=== PATIENT | male | born 1965 | race Caucasian/White ===

== ENCOUNTER 2024-05-31 09:03 | Emergency (ER) | payer SELFPAY ==
[2024-05-31 09:11] VITALS: BP 111/71; PULSE 83; RESP 18; TEMP 36.7; O2SAT 96; BMI 24.3
--- NOTE | 2024-05-31 09:13 | XR_ITS ---
WS: [id number] Portable AP upright chest, 05/31/2024 Clinical Data: congestion Comparison: None. Findings: There is a pleural-based patchy opacity in the midportion of the right lung which may be in the right middle lobe. This opacity could represent pneumonia, atelectasis or a mass. There is a pat rosy opacity inferior to the right hilum which could also represent pneumonia, atelectasis or a lung m ass. There is a small right effusion. There is a oval 2.2 cm nodule in the midportion of the left eulalia g which could represent a primary cancer or a metastatic lesion. The heart is normal. The diaphragms are flattened. The pulmonary vascularity is not increased. No pneumothorax is seen. XR/XR chest 1V portable [id number] Impression: 1. Pleural-based patchy opacity in the midportion of the right lung, possibly r ight middle lobe which could represent pneumonia, atelectasis or primary lung t umor. 2. Patchy opacity inferior to right hilum which could also represent pneumonia, atelectasis or a lung mass. 3. Oval 2.2 cm nodule in midportion of left lung which could represent a primar y tumor or metastatic lesion. 4. Small right pleural effusion. 5. Atherosclerosis and hyperinflation.
--- NOTE | 2024-05-31 09:24 | ED_ITS ---
Documented by User: VENITA James 05/31/24 12:54 HPI - URI/Sore Throat 2 General: Chief Complaint: Upper Respiratory Infection Stated Complaint: SOB Time Seen by Provider: 05/31/24 09:08 Source: patient Mode of arrival: wheelchair Limitations: no limitations History of Present Illness: Patient is a 59-year-old male who presents to ED today for evaluation of what he believes is an upper respiratory infection. Patient states he is originally from the [place] but several years ago by some land in [place], [place] and has been spending the lennon here trying to attend to it. He states he was around his grandchildren a few weeks ago and remembers they were coughing and had some congestion. He thinks maybe he caught what they had . Essentially he tells me that he feels like he is drowning in mucus . After speaking to patient further he tells me that he has had quite a bit of weight loss over the past 6 weeks. He attributes this to increased stress as he states his is actively passing away of breast cancer. He is reporting decreased energy as well as night sweats and intermittent fevers over the past several weeks. Patient does have a 40+ year smoking history although did quit 6 weeks ago. Patient states at rest he does not overly feel short of breath. He is not having any chest pain. Vitals are stable upon arrival. He reportedly has not seen a doctor in 16 years . MD elicited complaint: fever and other (chest congestion/cough) Onset (ago): week(s) Consistency: constant Severity: moderate Description of mucous: clear Able to tolerate fluids by mouth: Yes Exacerbating factors: nothing Relieving factors: nothing Context: sick contacts (grandchildren) Associated symptoms: Reports cough, fever(s) and other (night sweats, weight loss, decreased energy ); Deny abdominal pain, chest pain, diarrhea, headache(s), nasal congestion, nausea, sinus pain or vomiting Treatments prior to arrival: none Review of Systems 2 Const: Reports: fever(s), change in weight and night sweats ENMT: Denies: throat pain, odynophagia, nasal discharge, nasal congestion or sinus pain Card: Reports: dyspnea on exertion; Denies: chest pain, palpitations, irregular heart rhythm, edema, swelling of feet/ankles, lightheadedness, syncope, pre-syncope, orthopnea, leg pain with exertion or acrocyanosis Resp: Reports: productive cough and chest congestion; Denies: dyspnea, wheezing, stridor, pain on inspiration or hemoptysis GI: Denies: abdominal pain, nausea, vomiting or diarrhea Musc: Denies: neck pain, back pain, extremity pain or joint pain Skin/Breast: Denies: rash Neuro: Denies: headache(s), numbness in extremities, weakness in extremities, sensory changes or dizziness Physical Exam 2 Const: COMMON NORMALS: no acute distress, patient oriented x3, no limitations and alert GENERAL APPEARANCE: cooperative ORIENTATION/CONSCIOUSNESS: Yes awake, Yes oriented to person, Yes oriented to place and Yes oriented to time Neck/C-Spine: COMMON NORMALS: no lymphadenopathy GENERAL: Yes normal visual inspection Chest: COMMONS NORMALS: normal inspection of the chest and normal palpation of entire chest wall Resp: COMMON NORMALS: normal respiratory effort and clear to auscultation bilaterally AUSCULTATION: clear to auscultation bilaterally Cardio: COMMON NORMALS: regular rate and regular rhythm RATE: regular rate RHYTHM: regular rhythm Extremity: COMMON NORMALS: no clubbing, cyanosis or edema, no calf tenderness and no pedal edema GENERAL: Yes normal exam except as noted Neuro: IRENA COMA SCALE: document GCS findings Irena coma scale eye opening: Spontaneous Irena coma scale verbal response: Orientated Irena coma scale motor response: Obey commands Irena coma scale total score: 15 COMMON NORMALS: patient oriented x3 SENSORIUM/ORIENTATION: Yes alert, Yes oriented to person, Yes oriented to place and Yes oriented to time Course 2 Vital Signs: Vital signs: Vital Signs Temperature 98.1 F 05/31/24 09:11 Pulse Rate 81 05/31/24 13:13 Respiratory Rate 18 05/31/24 09:11 Blood Pressure 116/77 05/31/24 13:13 Pulse Oximetry 96 05/31/24 13:13 Oxygen Delivery Me thod Room Air 05/31/24 10:06 MDM - URI/Sore Throat Medical Decision Making Patient's history unfortunately was very suspicious for lung cancer and I immediately informed him that this would be a large concern. Initial CXR obtained which was abnormal thus blood work and CT chest imaging initiated. Unfortunately on his chest CT he has several necrotic pulmonary masses most likely consistent with malignancy. His vital signs are stable. He does not require hospitalization. CT findings discussed with Dr. Encinas. We will refer patient to pulmonology for biopsy. He will then require follow-up with oncology. Will cover with antibiotics. Medical Records I reviewed the patient's medical records. Lab Data I reviewed the patient's lab results. 05/31/24 10:47 05/31/24 10:47 Radiology Impressions Chest X-Ray 05/31/24 09:13 Impression: 1. Pleural-based patchy opacity in the midportion of the right lung, possibly right middle lobe which could represent pneumonia, atelectasis or primary lung tumor. 2. Patchy opacity inferior to right hilum which could also represent pneumonia, atelectasis or a lung mass. 3. Oval 2.2 cm nodule in midportion of left lung which could represent a primary tumor or metastatic lesion. 4. Small right pleural effusion. 5. Atherosclerosis and hyperinflation. Chest CT 05/31/24 09:32 IMPRESSION: 1. Multifocal bilateral pulmonary masses as described above. Several of the masses appear partially necrotic and possibly superinfected. Biopsy/tissue sampling is recommended as well as PET-CT. 2. Small partially loculated right pleural effusion. 3. Subcarinal lymphadenopathy. 4. Calcified coronary artery disease. Laboratory Results WBC 12.67 10^3/uL (3.29-11.43) H 05/31/24 10:47 RBC 3.61 10^6/uL (3.85-5.65) L 05/31/24 10:47 Hgb 10.00 g/dL (11.27-16.99) L 05/31/24 10:47 Hct 32.0 % (37-53) L 05/31/24 10:47 MCV 88.6 fl (82-101) 05/31/24 10:47 MCH 27.7 pg (27-33) 05/31/24 10:47 MCHC 31.3 g/dL (30-55) 05/31/24 10:47 RDW 12.7 % (12.1-15.1) 05/31/24 10:47 Plt Count 319 10^3/cmm (157-399) 05/31/24 10:47 MPV 9.6 fL (7.4-10.4) 05/31/24 10:47 Neut % (Auto) 85.6 % 05/31/24 10:47 Lymph % (Auto) 6.3 % 05/31/24 10:47 Whitfield % (Auto) 6.3 % 05/31/24 10:47 Eos % (Auto) 0.0 % 05/31/24 10:47 Baso % (Auto) 0.3 % 05/31/24 10:47 Neut # (Auto) 10.84 10^3/uL (1.8-7.7) H 05/31/24 10:47 Lymph # (Auto) 0.8 10^3/uL (0.8-4.8) 05/31/24 10:47 Whitfield # (Auto) 0.8 10^3/uL (0.2-0.9) 05/31/24 10:47 Eos # (Auto) 0.0 10^3/uL (0.0-0.8) 05/31/24 10:47 Baso # (Auto) 0.0 10^3/uL (0.0-0.1) 05/31/24 10:47 Nucleated RBC % (auto) 0 % 05/31/24 10:47 Nucleated RBCs # 0.0 /100WBC 05/31/24 10:47 Sodium 131 mmol/L (136-145) L 05/31/24 10:47 Potassium 3.7 mmol/L (3.5-5.1) 05/31/24 10:47 Chloride 93 mmol/L (98-107) L 05/31/24 10:47 Carbon Dioxide 26 mmol/L (22-29) 05/31/24 10:47 Anion Gap 15.7 (5-19) 05/31/24 10:47 BUN 7 mg/dL (8-23) L 05/31/24 10:47 Creatinine 0.6 mg/dL (0.7-1.2) L 05/31/24 10:47 GFR Calculation 137.0 mL/min (90-130) H 05/31/24 10:47 Glucose 101 mg/dL (65-115) 05/31/24 10:47 Calculated Osmolality 270 mOsm/kg (285-295) L 05/31/24 10:47 Calcium 8.4 mg/dL (8.5-10.5) L 05/31/24 10:47 Total Bilirubin 0.5 mg/dL (0.15-1.2) 05/31/24 10:47 AST 24 U/L (0-40) 05/31/24 10:47 ALT 23 U/L (0-41) 05/31/24 10:47 Alkaline Phosphatase 139 U/L (40-130) H 05/31/24 10:47 Total Protein 6.7 g/dL (6.6-8.7) 05/31/24 10:47 Albumin 2.8 g/dL (3.5-5.2) L 05/31/24 10:47 Globulin 3.9 g/dL (1.3-4.6) 05/31/24 10:47 All radiology interpretation(s) finalized by discharge Discharge Plan Discharge Patient Disposition: Home Clinical Impression: Lung malignancy Qualifiers: Laterality: unspecified laterality Lung location: overlapping sites Qualified Code(s): C34.80 - Malignant neoplasm of overlapping sites of unspecified bronchus and lung Condition: Stable Prescriptions: New levofloxacin 500 mg tablet 500 mg PO DAILY 7 Days Qty: 7 0RF Discharge Orders: Discharge ED (Routine); Ordered 05/31/24 Ordered By: Xenia Fischer Activity Restrictions/Additional Instructions: As we discussed you are chest CT scan today unfortunately showed multiple pulmonary masses/lesions that were concerning for lung cancer/malignancy. Case management should be reaching out to you to set you up with a follow-up appointment with pulmonology for biopsy. You will then require follow-up with oncology. You need to return to the emergency department for severe chest pain, shortness of breath, difficulty breathing, uncontrollable fevers, or any other concerns you may have. Coding Level of Care Code ED Animation Artist for Chg Fwd Documented by User: Joe Encinas DO 05/31/24 15:46 HPI - URI/Sore Throat 2 General: Chief Complaint: Upper Respiratory Infection Stated Complaint: SOB Time Seen by Provider: 05/31/24 09:08 Physical Exam 2 Neuro: IRENA COMA SCALE: document GCS findings Irena coma scale total score: 15 Course 2 Vital Signs: Vital signs: Vital Signs Temperature 98.1 F 05/31/24 09:11 Pulse Rate 81 05/31/24 13:13 Respiratory Rate 18 05/31/24 09:11 Blood Pressure 116/77 05/31/24 13:13 Pulse Oximetry 96 05/31/24 13:13 Oxygen Delivery Me thod Room Air 05/31/24 10:06 MDM - URI/Sore Throat Medical Decision Making Patient's history unfortunately was very suspicious for lung cancer and I immediately informed him that this would be a large concern. Initial CXR obtained which was abnormal thus blood work and CT chest imaging initiated. Unfortunately on his chest CT he has several necrotic pulmonary masses most likely consistent with malignancy. His vital signs are stable. He does not require hospitalization. CT findings discussed with Dr. Encinas. We will refer patient to pulmonology for biopsy. He will then require follow-up with oncology. Will cover with antibiotics. Chart reviewed and patient discussed with midlevel. Agree with assessment and plan. Lab Data 05/31/24 10:47 05/31/24 10:47 Radiology Impressions Chest X-Ray 05/31/24 09:13 Impression: 1. Pleural-based patchy opacity in the midportion of the right lung, possibly right middle lobe which could represent pneumonia, atelectasis or primary lung tumor. 2. Patchy opacity inferior to right hilum which could also represent pneumonia, atelectasis or a lung mass. 3. Oval 2.2 cm nodule in midportion of left lung which could represent a primary tumor or metastatic lesion. 4. Small right pleural effusion. 5. Atherosclerosis and hyperinflation. Chest CT 05/31/24 09:32 IMPRESSION: 1. Multifocal bilateral pulmonary masses as described above. Several of the masses appear partially necrotic and possibly superinfected. Biopsy/tissue sampling is recommended as well as PET-CT. 2. Small partially loculated right pleural effusion. 3. Subcarinal lymphadenopathy. 4. Calcified coronary artery disease. Laboratory Results WBC 12.67 10^3/uL (3.29-11.43) H 05/31/24 10:47 RBC 3.61 10^6/uL (3.85-5.65) L 05/31/24 10:47 Hgb 10.00 g/dL (11.27-16.99) L 05/31/24 10:47 Hct 32.0 % (37-53) L 05/31/24 10:47 MCV 88.6 fl (82-101) 05/31/24 10:47 MCH 27.7 pg (27-33) 05/31/24 10:47 MCHC 31.3 g/dL (30-55) 05/31/24 10:47 RDW 12.7 % (12.1-15.1) 05/31/24 10:47 Plt Count 319 10^3/cmm (157-399) 05/31/24 10:47 MPV 9.6 fL (7.4-10.4) 05/31/24 10:47 Neut % (Auto) 85.6 % 05/31/24 10:47 Lymph % (Auto) 6.3 % 05/31/24 10:47 Whitfield % (Auto) 6.3 % 05/31/24 10:47 Eos % (Auto) 0.0 % 05/31/24 10:47 Baso % (Auto) 0.3 % 05/31/24 10:47 Neut # (Auto) 10.84 10^3/uL (1.8-7.7) H 05/31/24 10:47 Lymph # (Auto) 0.8 10^3/uL (0.8-4.8) 05/31/24 10:47 Whitfield # (Auto) 0.8 10^3/uL (0.2-0.9) 05/31/24 10:47 Eos # (Auto) 0.0 10^3/uL (0.0-0.8) 05/31/24 10:47 Baso # (Auto) 0.0 10^3/uL (0.0-0.1) 05/31/24 10:47 Nucleated RBC % (auto) 0 % 05/31/24 10:47 Nucleated RBCs # 0.0 /100WBC 05/31/24 10:47 Sodium 131 mmol/L (136-145) L 05/31/24 10:47 Potassium 3.7 mmol/L (3.5-5.1) 05/31/24 10:47 Chloride 93 mmol/L (98-107) L 05/31/24 10:47 Carbon Dioxide 26 mmol/L (22-29) 05/31/24 10:47 Anion Gap 15.7 (5-19) 05/31/24 10:47 BUN 7 mg/dL (8-23) L 05/31/24 10:47 Creatinine 0.6 mg/dL (0.7-1.2) L 05/31/24 10:47 GFR Calculation 137.0 mL/min (90-130) H 05/31/24 10:47 Glucose 101 mg/dL (65-115) 05/31/24 10:47 Calculated Osmolality 270 mOsm/kg (285-295) L 05/31/24 10:47 Calcium 8.4 mg/dL (8.5-10.5) L 05/31/24 10:47 Total Bilirubin 0.5 mg/dL (0.15-1.2) 05/31/24 10:47 AST 24 U/L (0-40) 05/31/24 10:47 ALT 23 U/L (0-41) 05/31/24 10:47 Alkaline Phosphatase 139 U/L (40-130) H 05/31/24 10:47 Total Protein 6.7 g/dL (6.6-8.7) 05/31/24 10:47 Albumin 2.8 g/dL (3.5-5.2) L 05/31/24 10:47 Globulin 3.9 g/dL (1.3-4.6) 05/31/24 10:47 Discharge Plan Discharge Patient Disposition: Home Clinical Impression: Lung malignancy Qualifiers: Laterality: unspecified laterality Lung location: overlapping sites Qualified Code(s): C34.80 - Malignant neoplasm of overlapping sites of unspecified bronchus and lung Condition: Stable Prescriptions: New levofloxacin 500 mg tablet 500 mg PO DAILY 7 Days Qty: 7 0RF Discharge Orders: Discharge ED (Routine); Ordered 05/31/24 Ordered By: Xenia Fischer Activity Restrictions/Additional Instructions: As we discussed you are chest CT scan today unfortunately showed multiple pulmonary masses/lesions that were concerning for lung cancer/malignancy. Case management should be reaching out to you to set you up with a follow-up appointment with pulmonology for biopsy. You will then require follow-up with oncology. You need to return to the emergency department for severe chest pain, shortness of breath, difficulty breathing, uncontrollable fevers, or any other concerns you may have. Coding Level of Care Code ED Animation Artist for Janina Cabrera
--- NOTE | 2024-05-31 09:32 | CTR_ITS ---
PROCEDURE INFORMATION: Exam: CT Chest With Contrast; Diagnostic Exam date and time: 05/31/2024 11:55 AM Age: 59 years old Clinical indication: Abnormal findings; Abnormal radiologic exam of lung or chest; Additional info: Abnormal cxr; Weight loss, night sweats, dec energy TECHNIQUE: Imaging protocol: Diagnostic computed tomography of the chest with contrast. Radiation optimization: All CT scans at this facility use at least one of these dose optimization techniques: automated exposure control; mA and/or kV adjustment per patient size (includes targeted exams where dose is matched to clinical indication); or iterative reconstruction. Contrast material: OMNI 350; Contrast volume: 100 ml; Contrast route: INTRAVENOUS (IV); COMPARISON: CR XR chest 1V portable [id number] 05/31/2024 9:22 AM RADIATION DOSE METRICS: Total DLP (mGy-cm): 309.92 FINDINGS: Lungs: There is a mass in the lateral and mid left lower lobe measuring 3.3 x 3 x 2.1 cm. The central portion of this lesion is slightly lower density than the periphery and a component of central necrosis is suspected. Large 6.5 x 4.2 x 8.7 center meter mass in the right infrahilar region and medial right lower lobe. There are areas of low-density and gas within this mass suggesting tumor necrosis and possible superinfection. There is an area of consolidation in the periphery of the right lung measuring 3.7 x 6.6 x 6.4 cm. The center of this lesion appears fluid density and could represent necrosis. There are multiple other small spiculated nodular densities in both lungs. An example is a 5-6 mm nodule in the periphery of the left lower lobe (series 6, image 25). There is a 2.2 x 1.6 x 1.6 cm nodule in the right lower lobe (series 3, image 43). These lesions are concerning for neoplasm and less likely multifocal septic emboli. Biopsy/tissue sampling along with PET-CT is recommended. Pleural spaces: Small partially loculated right pleural effusion. Heart: Unremarkable. No cardiomegaly. No pericardial effusion. Coronary arteries: Calcified coronary artery disease. Lymph nodes: There is a 1.3 cm subcarinal lymph node and a small pretracheal lymph node. Vasculature: Unremarkable. No aortic aneurysm. Liver: There is a 7 mm hypodensity in the right lobe of the liver, too small to characterize but likely representing a cyst. Bones/joints: No acute osseous lesions are identified. Soft tissues: Unremarkable. CT/CT chest w con* [id number] IMPRESSION: 1. Multifocal bilateral pulmonary masses as described above. Several of the masses appear partially necrotic and possibly superinfected. Biopsy/tissue sampling is recommended as well as PET-CT. 2. Small partially loculated right pleural effusion. 3. Subcarinal lymphadenopathy. 4. Calcified coronary artery disease.
[2024-05-31 10:06] VITALS: BP 116/69; PULSE 76; O2SAT 94
[2024-05-31 11:07] LABS: Basophils % 0.3 %; Lymphocytes # 0.8 10^3/uL (0.8-4.8); Lymphocytes % 6.3 %; Mean Corpuscular HGB Conc 31.3 g/dL (30-55); Mean Corpuscular Hemoglobin 27.7 pg (27-33); Mean Corpuscular Volume 88.6 fl (82-101); Mean Platelet Volume 9.6 fL (7.4-10.4); Monocytes # 0.8 10^3/uL (0.2-0.9); Monocytes % 6.3 %; Neutrophils # 10.84 10^3/uL (1.8-7.7); Neutrophils % 85.6 %; Nucleated Red Blood Cells % 0 %; Platelet Count 319 10^3/cmm (157-399); Red Blood Count 3.61 10^6/uL (3.85-5.65); Red Cell Distribution Width 12.7 % (12.1-15.1); White Blood Count 12.67 10^3/uL (3.29-11.43)
[2024-05-31 11:25] LABS: Alanine Aminotransferase 23 U/L (0-41); Albumin Level 2.8 g/dL (3.5-5.2); Alkaline Phosphatase 139 U/L (40-130); Anion Gap 15.7 (5-19); Aspartate Amino Transferase 24 U/L (0-40); Blood Urea Nitrogen 7 mg/dL (8-23); Calcium 8.4 mg/dL (8.5-10.5); Carbon Dioxide 26 mmol/L (22-29); Chloride 93 mmol/L (98-107); Creatinine Clr Calc Pharmacy 153.2329; Globulin 3.9 g/dL (1.3-4.6); Glucose 101 mg/dL (65-115); Osmolality Calculated 270 mOsm/kg (285-295); Potassium 3.7 mmol/L (3.5-5.1); Sodium 131 mmol/L (136-145); Total Bilirubin 0.5 mg/dL (0.15-1.2); Total Protein 6.7 g/dL (6.6-8.7)
[2024-05-31] MEDS: iohexol 350 mg/mL 500 mL Btl (per mL) IV (11:57)
[2024-05-31 13:13] VITALS: BP 116/77; PULSE 81; O2SAT 96
--- NOTE | 2024-06-02 23:34 | DCPLANNER ---
Referral for Pulmonology sent to [facility] and Message sent to Oncology for follow up-
== END 2024-05-31 13:14 | disposition home or self-care (01) ==
PROVIDERS: Emergency Provider Physician Assistant
DX: C34.80 Malignant neoplasm of overlapping sites of unspecified bronchus and lung (principal)
CPT/HCPCS: 36415; 71045; 71260; 80053; 85025; 99285; Q9967